=== PATIENT | female | born 1945 | race Caucasian/White ===

== ENCOUNTER → 2017-01-13 11:52 | Outpatient (CLI) | payer MEDICARE ==
[2016-03-02 07:33] VITALS: BMI 32.2
[~2017-01-13 11:52] MED LIST: AVAPRO75 MG PO; EFFEXOR XR150 MG PO; ELIQUIS2.5 MG PO; HYDROCODONE-APA1 TAB PO; LIPITOR40 MG PO; MUPIROCIN22 GM TOPICAL; NEURONTIN 300300 MG PO; OMEPRAZOLE40 MG PO; OXYCODONE HCL5 MG PO; TRIAMTERENE-HCT1 TA1 PO; TYLENOL PM1 TAB PO; ULTRAM50 MG PO; ZYRTEC10 MG PO
== END | disposition home or self-care (01) ==
LOC: D.LABREF 11:52
DX: M19.011 Primary osteoarthritis, right shoulder (principal); Z11.8 Encounter for screening for other infectious and parasitic diseases

== ENCOUNTER 2017-01-25 10:30 | Inpatient (IN) | payer MEDICARE ==
[~2017-01-25] VITALS: Ht 162.6 cm; Wt 75.9 kg
--- NOTE | ~2017-01-25 | DS ---
PATIENT:PHOENIX RUBI :49 MEDICAL RECORD: [id number] DISCHARGE SUMMARY ADMISSION DATE: 02/01/17 DISCHARGE DATE: 02/03/17 DATE OF ADMISSION: 02/01/2017 DATE OF DISCHARGE: 02/03/2017. ADMITTING DIAGNOSIS: Right shoulder degenerative joint disease. DISCHARGE DIAGNOSIS: Right shoulder degenerative joint disease. PROCEDURE PERFORMED: Right reverse total shoulder arthroplasty. She also had some postoperative acute blood loss anemia. HISTORY OF PRESENT ILLNESS: This is a 71-year-old female with advanced degenerative changes of her shoulder and additionally with significant cuff loss. In light of these problems, she was brought into the hospital for shoulder replacement. She overall did well with the procedure. She did stayed in the hospital a couple of days, but was felt by the 3rd day that she could be discharged, continue home self care with her shoulder replacement, doing outpatient therapy, will continue on pain meds, aspirin for anticoagulation and we will see her back in the office in about 10-14 days. TRANSINT:[id number] Voice Confirmation ID: [id number] DOCUMENT ID: [id number] JANNIE ROWELL MD CC: [id number] DICTATION DATE: 03/08/17915 INVESTOR RELATIONS SPECIALIST: 03/08/17 1248 DIS IN 02/03/17 [facility] [address] [place] [address]
[~2017-01-25 10:30] MED LIST changes: -ELIQUIS2.5 MG PO; -MUPIROCIN22 GM TOPICAL; -OXYCODONE HCL5 MG PO; -TYLENOL PM1 TAB PO; -ZYRTEC10 MG PO
[2017-01-27] MEDS ORDERED: MUPIROCIN22 GM TOPICAL (14:55)
[2017-01-27] MEDS ORDERED: TYLENOL PM1 TAB PO (14:56)
[2017-01-27 15:00] LABS: BASOPHILS 0.1 % (0.0-2.0); EOSINOPHILS 2.6 % (0-7); HEMATOCRIT 36.5 % (36.0-48.0); HEMOGLOBIN 11.6 g/dL (12-16); IMMATURE GRANULOCYTES 0.3 % (0-5); LYMPHOCYTES 32.1 % (15-50); MCH 28.6 pg (26.0-34.0); MCHC 31.8 g/dL (31.0-37.0); MCV 90.1 fL (80.0-100.0); MEAN PLATELET VOLUME 9.4 fL (7.4-10.4); MONOCYTES 7.9 % (2-11); PLATELET COUNT 277 10x3/uL (130-400); RBC 4.05 10x6/uL (4.00-5.40); RDW 14.7 % (11.5-14.5); WBC 7.6 10x3/uL (4.8-10.8)
[2017-01-27 15:04] LABS: APTT 29.5 SECONDS (22.8-39.4); INR 0.94 (0.85-1.17); PROTIME 12.4 SECONDS (11.6-15.0)
[2017-01-27 15:05] LABS: ANION GAP 14.4 mmol/L (8-16); CALCIUM 8.7 mg/dL (8.5-10.1); CARBON DIOXIDE 31.2 mmol/L (21.0-32.0); CREATININE - SERUM 1.3 mg/dL (0.6-1.3); POTASSIUM - SERUM 3.6 mmol/L (3.5-5.1)
[2017-01-27 15:19] LABS: APPEARANCE CLEAR (CLEAR); BACTERIA FEW /hpf (NONE SEEN); BILIRUBIN NEGATIVE (NEGATIVE); COLOR YELLOW (YELLOW); EPITHELIAL CELLS 0-5 /hpf (0-5); GLUCOSE NEGATIVE (NEGATIVE); KETONE NEGATIVE (NEGATIVE); LEUKOCYTE ESTERASE TRACE (NEGATIVE); MUCUS <1+ /lpf (NONE SEEN); NITRITE NEGATIVE (NEGATIVE); PROTEIN NEGATIVE (NEGATIVE); SPECIFIC GRAVITY 1.015 (1.005-1.020); UROBILINOGEN NORMAL (NORMAL); WHITE CELLS - URINE 0-5 /hpf (0-5)
[2017-02-01] VITALS (11 sets, daily range): BP systolic 97–147; BP diastolic 52–93; Ht 162.6 cm; Wt 75.9 kg
[2017-02-01] MEDS ORDERED: ZYRTEC10 MG PO (09:13)
--- NOTE | 2017-02-01 14:02 | NUR ---
THE PATIENT REPORTED A PAIN OF A [address] IBRAHIM NOW AT BEDSIDE ASSESING CONT ISB. DR IBRAHIM ORDERED ADDITIONAL DILAUDID FOR PAIN.
--- NOTE | 2017-02-01 14:30 | NUR ---
PATIENT RECEIVED TO FLOOR FROM PACU VIA BED. RESPIRATIONS EVEN AND UNLABORED. VITAL SIGNS STABLE. FAMILY PRESENT. ORIENTED TO ROOM. SIDE RAILS UP X2. BED IN LOW POSITION. CALL LIGHT IN REACH.
--- NOTE | 2017-02-01 15:13 | NUR ---
PATIENT IN BED RESTING QUIETLY WITH EYES CLOSED. WAKES EASY. VITAL SIGNS STABLE. SIDE RAILS UP X2. BED IN LOW POSITION. CALL LIGHT IN REACH.
--- NOTE | 2017-02-01 17:28 | NUR ---
PATIENT ALERT IN BED EATING DINNER. TOLERATING WELL. FAMILY PRESENT. SIDE RAILS UP X2. BED IN LOW POSITION. CALL LIGHT IN REACH.
--- NOTE | 2017-02-01 19:35 | NUR ---
RECIEVED SHIFT REPORT. PT IS LYING IN BED. ALERT AND ORIENTED AND ABLE TO VERBALIZE NEEDS. IV IS PATENT AND FLUIDS ARE RUNNING PER ORDER. SCD'S ON. DRESSING TO RIGHT SHOULDER C/D/I AND SLING ON. O2 @ 1 PER NASAL CANNULA. PT IS AMBULATORY WITH ASSISTANCE. PT STATES PAIN IS 6/10. NO NEEDS ARE VERBALIZED AT THIS TIME. WILL CONTINUE TO MONITOR. FAMILY AT BEDSIDE. SIDE RAILS ARE UP X 2. BED IS IN LOWEST POSITION. CALL LIGHT IS WITHIN REACH.
--- NOTE | 2017-02-01 20:46 | NUR ---
SHIFT ASSESSMENT COMPLETED. NIGHT MEDS GIVEN WITH NO PROBLEMS. NO NEEDS ARE VOICED. WILL MONITOR. SIDE RAILS X 2. BED LOW. CALL LIGHT IN REACH.
[2017-02-02 02:04] VITALS: BP 108/58
[2017-02-02 05:46] LABS: BASOPHILS 0 % (0.0-2.0); EOSINOPHILS 0 % (0-7); HEMATOCRIT 27.2 % (36.0-48.0); HEMOGLOBIN 8.5 g/dL (12-16); IMMATURE GRANULOCYTES 0.3 % (0-5); LYMPHOCYTES 9.7 % (15-50); MCH 28.1 pg (26.0-34.0); MCHC 31.3 g/dL (31.0-37.0); MCV 90.1 fL (80.0-100.0); MEAN PLATELET VOLUME 9.5 fL (7.4-10.4); MONOCYTES 9.1 % (2-11); NEUTROPHILS 80.9 % (40-80); PLATELET COUNT 242 10x3/uL (130-400); RBC 3.02 10x6/uL (4.00-5.40); RDW 14.8 % (11.5-14.5); WBC 7.9 10x3/uL (4.8-10.8)
[2017-02-02 06:07] LABS: ALBUMIN 2.7 g/dL (3.4-5.0); ANION GAP 13.4 mmol/L (8-16); BILIRUBIN - TOTAL 0.3 mg/dL (0.2-1.3); CALCIUM 8.3 mg/dL (8.5-10.1); CARBON DIOXIDE 26.9 mmol/L (21.0-32.0); CREATININE - SERUM 1.3 mg/dL (0.6-1.3); POTASSIUM - SERUM 4.3 mmol/L (3.5-5.1); PROTEIN - SERUM 5.8 g/dL (6.4-8.2)
[2017-02-02 06:15] VITALS: BP 117/60
--- NOTE | 2017-02-02 07:00 | NUR ---
PATIENT RECEIVED ALERT IN HIGH ALLEN POSITION. RESPIRATIONS EVEN AND UNLABORED. FAMILY PRESENT. DENIES NEEDS. SIDE RAILS UP X2. BED IN LOW POSITION. CALL LIGHT IN REACH.
[2017-02-02 08:46] VITALS: BP 124/73
--- NOTE | 2017-02-02 09:05 | NUR ---
PATIENT ALERT IN BED. RESPIRATIONS EVEN AND UNLABORED. SCHEDULED MEDICATION ADMINISTERED. DENIES NEEDS. CALL LIGHT IN REACH. FAMILY PRESENT.
--- NOTE | 2017-02-02 10:12 | NUR ---
SITTING UP IN CHAIR ALERT. NO SIGNS OF DISTRESS NOTED. CALL LIGHT IN REACH.
--- NOTE | 2017-02-02 12:29 | NUR ---
PATIENT ALERT IN BED EATING LUNCH. TOLERATING WELL TOLERATED. CALL LIGHT IN REACH. IV SALINE LOCKED.
--- NOTE | 2017-02-02 12:41 | NUR ---
Patient Name: PHOENIX RUBI Admission Status: Elective Accout number: [id number] Admission Date: 02-01-2017 : 1945 Admission Diagnosis: Attending: ZACHERY Current LOS: 1 Anticipated DC Date: 02-04-2017 Planned Disposition: Home Primary Insurance: [employer] ADV Discharge Planning Comments: CM MET WITH PATIENT WITH D/C NEEDS AND PLANS. PATIENT STATED SHE LIVES WITH HER SPOUSE (NEL) AND HE WILL DRIVE HER HOME AT DISCHARGE. PATIENT STATED SHE HAS 2 STEPS W/RAILS TO ENTER HOME AND NO STAIRS INSIDE. PATIENTS PCP IS DR. ESCOBAR AND PHARMACY IS [facility]. PATIENT STATED SHE IS INDEPENDENT WITH HER CARE AND HAS A WALKER, WHEELCHAIR, SHOWER CHAIR, AND BS COMMODE AT HOME. PATIENT STATED SHE HAS NO NEEDS FOR DISCHARGE AND DOES NOT WANT HOME HEALTH. CM WILL CONTINUE TO FOLLOW PATIENT WITH D/C NEEDS AND PLANS. PCP DR. LUZ CHRISTOPHER [facility] - [phone] NEL (SPOUSE) [phone] Hand Worker: lAondra Chacko Is the patient Alert and Oriented? Yes 0 * How many steps to enter\exit or inside your home? 2 W/RAILS 0 * PCP DR. ESCOBAR 0 * Pharmacy [facility] 0 * Preadmission Environment Home with Family 0 * ADLs Independent 0 * Equipment Bedside Commode Shower Chair Walker Wheelchair 0 * List name and contact numbers for known caregivers / representatives who currently or will assist patient after discharge: NEL ALVAREZ (SPOUSE) [phone] 0 * Community resources currently utilized None 0 * Additional services required to return to the preadmission environment? Yes 0 * Can the patient safely return to the preadmission environment? Yes 0 * Has this patient been hospitalized within the prior 30 days at any hospital? No 0 Grand Total: 0
[2017-02-02 12:45] VITALS: BP 145/70
--- NOTE | 2017-02-02 13:20 | NUR ---
PATIENT UP AMBULATING IN HALLWAY WITH PT. NO SIGNS OF DISTRESS NOTED. WILL CONTINUE TO MONITOR.
--- NOTE | 2017-02-02 15:25 | NUR ---
ALERT IN BED. NO SIGNS OF DISTRESS NOTED. RATES PAIN 02/14. TORADOL ADMINISTERED PER ORDER. DENIES NEEDS. SIDE RAILS UP X2. BED IN LOW POSITION. CALL LIGHT IN REACH.
[2017-02-02 16:43] VITALS: BP 137/61
--- NOTE | 2017-02-02 17:24 | NUR ---
PATIENT SITTING UP IN HIGH ALLEN POSITION EATING DINNER. TOLERATING WELL. DENIES NEEDS. SIDE RAILS UP X2. BED IN LOW POSITION. CALL LIGHT IN REACH.
[2017-02-02 20:00] VITALS: BP 110/57
--- NOTE | 2017-02-02 20:23 | NUR ---
REC'D.SITTING IN BEDSIDE CHAIR.SHOULDER IMMOB. INTACT TO RIGHT SHOULDER. NEUROOVASCULAR STATUS WNL.GOOD RADIAL PULSE.DENIES DECREASE IN SENSATION. STATES HAS ARTHRITIS IN HANDS.WILL CONTINUE TO MONITOR FOR ANY CHGES. NEUROVASCULAR STATUS AND FOLLOW CURRENT PLAN OF CARE
[2017-02-03] VITALS: BP 108/57
--- NOTE | 2017-02-03 01:50 | NUR ---
PATIENT RESTING WITH EYES CLOSED. NO VISIBLE SIGNS OF DISTRESS. BED IN LOWEST POSITION AND CALL LIGHT WITHIN REACH.
[2017-02-03 04:00] VITALS: BP 106/56
[2017-02-03 05:39] LABS: BASOPHILS 0.3 % (0.0-2.0); EOSINOPHILS 2.3 % (0-7); HEMATOCRIT 27.1 % (36.0-48.0); HEMOGLOBIN 8.3 g/dL (12-16); IMMATURE GRANULOCYTES 0.5 % (0-5); LYMPHOCYTES 23.9 % (15-50); MCH 28.1 pg (26.0-34.0); MCHC 30.6 g/dL (31.0-37.0); MCV 91.9 fL (80.0-100.0); MEAN PLATELET VOLUME 9.6 fL (7.4-10.4); MONOCYTES 11.6 % (2-11); NEUTROPHILS 61.4 % (40-80); PLATELET COUNT 242 10x3/uL (130-400); RBC 2.95 10x6/uL (4.00-5.40); RDW 15.3 % (11.5-14.5); WBC 6.5 10x3/uL (4.8-10.8)
[2017-02-03 06:12] LABS: ALBUMIN 2.9 g/dL (3.4-5.0); ANION GAP 14.4 mmol/L (8-16); BILIRUBIN - TOTAL 0.29 mg/dL (0.2-1.3); CALCIUM 8.3 mg/dL (8.5-10.1); CARBON DIOXIDE 26.7 mmol/L (21.0-32.0); CREATININE - SERUM 1.4 mg/dL (0.6-1.3); POTASSIUM - SERUM 4.1 mmol/L (3.5-5.1); PROTEIN - SERUM 6.6 g/dL (6.4-8.2)
--- NOTE | 2017-02-03 07:53 | NUR ---
AWAKE AND ALERT AT THIS TIME. CONTINUOUS INTRASCALINE BLOCK PATENT AND INFUSING. OXYGEN SATURATION 95% ON 2L VIA NC. RESPIRATIONS EVEN AND NON LABORED. BED ALARM ON AND IN WORKING ORDER. SCD'S OFF PER PT AT THIS TIME. DENIES NEEDS OR PAIN. CALL LIGHT IN REACH, WILL CONTINUE WITH PLAN OF CARE.
[2017-02-03] MEDS ORDERED: OXYCODONE HCL5 MG PO (07:55)
[2017-02-03] MEDS ORDERED: ELIQUIS2.5 MG PO (07:55)
--- NOTE | 2017-02-03 08:24 | NUR ---
CM REASSESSMENT NOTE: PATIENT IS DISCHARGING HOME TODAY- DRIVING HER. PATIENT HAS REFUSED HOME HEALTH AND HAD NO OTHER NEEDS.
[2017-02-03 08:41] VITALS: BP 130/74
--- NOTE | 2017-02-03 10:15 | NUR ---
INTRASCALINE BLOCK D/C BY DR ZEPEDA'S AT THIS TIME. EXPLAINED TO PT TO CALL SOON SHE BEGINS TO FEEL DISCOMFORT OR PAIN IN THE RIGHT SHOULDER. PT VERBALIZED UNDERSTANDING. ENCOURAGED PT TO USE INCENTIVE SPIROMETER 10X AN HOUR WHILE AWAKE, VERBALIZED UNDERSTANDING. AT BEDSIDE. WILL AWAIT D/C PAPERWORK.
--- NOTE | 2017-02-03 13:00 | NUR ---
IV D/C WITH CATH TIP INTACT AND DRESSING TO RIGHT SHOULDER CHANGED IN STERILE FASHION BY PITER LI. D/C HOME WITH .
[2017-02-03 13:03] VITALS: BP 126/63
--- NOTE | 2017-02-04 12:12 | OP ---
PATIENT NAME: PHOENIX RUBI MEDICAL RECORD: [id number] :49 LOCATION:[id number] ADMISSION DATE:02/01/17 SURGEON: JANNIE MOYER MD DATE OF OPERATION: 02/01/2017 PREOPERATIVE DIAGNOSIS: Right shoulder degenerative joint disease with rotator cuff arthropathy. POSTOPERATIVE DIAGNOSIS: Right shoulder degenerative joint disease with rotator cuff arthropathy. PROCEDURE PERFORMED: Right shoulder reverse total shoulder arthroplasty. SURGEON: Sravan Moyer MD ANESTHESIA: General with interscalene block for postop pain. CONDITION: The patient tolerated the procedure well and was transferred to the recovery room in stable condition at termination of the procedure. INDICATIONS: This is a pleasant 71-year-old female with advanced degenerative change of her shoulder and failed rotator cuff. She is no longer getting any better. She wanted to proceed with reverse total shoulder arthroplasty. We discussed risks, benefits, and alternatives. She understood and wished to proceed. OPERATIVE REPORT: The patient was taken to the operating room and placed in supine position. General anesthesia was obtained. She did have the interscalene block placed in the preop holding area. In the operating room, she was placed in the beach chair position with her arm in the arm positioning españa. Her right shoulder was confirmed to be the correct shoulder. It was prepped and draped in normal fashion. She did receive Ancef and vancomycin per protocol. She had a positive swab. She had initial prep followed by secondary ChloraPrep and then Ioban dressing placement. She then had a deltopectoral incision. This was taken down. The deltopectoral interval was identified. The vein was taken laterally with the deltoid. The conjoint tendon was retracted with the retractor medially. The deltoid retracted laterally. The subscapularis was taken down. A stitch was placed in this to hold it. I then rolled the head out, placed the guide and made a proximal humerus cut. I then broached and prepped the humeral head for a size 4. We placed the cap on the top protect this. I then placed anterior and posterior and inferior retractors, took the glenoid tissue from about the glenoid, drilled the pin overdrilled this then reamed with a small reamer, then did the working second hand around this to clean the edges, following which, I placed a small glenosphere baseplate. This was placed with 2 locking screws inferior and superior and 2 compression screws anterior and posterior. I then placed the glenosphere. When I went back, I placed the size 4 stem with a 6 poly. This fit well. I therefore took this out, placed the final size 4 stem with a 6 poly. This reduced well. She did not have any significant laxity. She had good range of motion. I therefore copiously irrigated, then closed with #1 Vicryl. Then, I closed the subscap with a #1 [place] wire, then, I closed with #1 Vicryl followed by 2-0 Vicryl, then klever, soft dressings, she was placed in a sling, awakened and transferred to recovery room in stable condition and having tolerated the procedure well. TRANSINT:[id number] Voice Confirmation ID: [id number] DOCUMENT ID: [id number] OPERATIVE REPORT [id number] PHOENIX RUBI, JANNIE ORTIZ MD at 1212 CC: [id number] DICTATION DATE: 02/01/17 1346 DIRECTOR PROCESS IMPROVEMENT: 02/01/17 1944 DIS IN 02/03/17 [facility] [address] [place] [address]
== END 2017-02-03 13:20 | disposition home or self-care (01) | DRG 483 ==
LOC: D.SDCHOLD 10:30 → D.MS 02-01 05:23 → D.SDCHOLD 02-01 10:00 → D.MS 02-01 13:44 → D.SDCHOLD 02-01 13:55 → D.MS 02-03 13:20
PROVIDERS: Family Medicine; ADMIT Orthopaedic Surgery Sports Medicine
PROC: 0RRJ00Z Replacement of Right Shoulder Joint with Reverse Ball and Socket Synthetic Substitute, Open Approach (ICD-10-PCS; principal; 2017-02-01 10:15)
DX: M19.011 Primary osteoarthritis, right shoulder (principal); D62 Acute posthemorrhagic anemia; I10 Essential (primary) hypertension; Z87.891 Personal history of nicotine dependence

== ENCOUNTER 2017-04-08 08:51 | Outpatient (CLI) | payer MEDICARE ==
[2017-02-01 14:36] VITALS: BMI 28.7
[~2017-04-08 08:51] MED LIST changes: +ELIQUIS2.5 MG PO; +MUPIROCIN22 GM TOPICAL; +OXYCODONE HCL5 MG PO; +TYLENOL PM1 TAB PO; +ZYRTEC10 MG PO
== END 2017-04-08 10:50 ==
LOC: D.MAMMO 08:51
DX: Z12.31 Encounter for screening mammogram for malignant neoplasm of breast (principal)

== ENCOUNTER 2019-05-08 08:00 | Outpatient (CLI) | payer MEDICARE ==
[2017-02-01 14:36] VITALS: BMI 28.7
== END 2019-05-08 16:39 | disposition home or self-care (01) ==
LOC: D.MAMMO 08:00
PROVIDERS: ATTEND Family Medicine
DX: Z12.31 Encounter for screening mammogram for malignant neoplasm of breast (principal)